=== PATIENT | male | born 1970 | race Caucasian/White ===

== ENCOUNTER 2020-02-12 14:56 | Emergency (ER) | payer OTHER, SELFPAY ==
--- NOTE | ~2020-02-12 | XR_ITS ---
EXAMINATION: XR elbow RT min 3V INDICATION: Generalized right elbow pain TECHNIQUE: Four views of the right elbow are obtained. COMPARISON: None available FINDINGS: There is no fracture, dislocation, or subluxation. The bones, soft tissues, and joint space s are normal. IMPRESSION: 1. No acute osseous abnormality. Reviewed, dictated and finalized at location A.
--- NOTE | 2020-02-12 15:08 | ED.UPPEXIN ---
HPI - Extremity Injury (Upper) General Chief Complaint: Extremity Injury, Upper Stated Complaint: right elbow pain Time Seen by Provider: 02/12/20 15:08 Source: patient Mode of arrival: ambulatory Limitations: no limitations History of Present Illness HPI narrative: A 49 y/o male presents to the ED with c/o right elbow injury. Pt states that he was working on a car 1 month ago when his right elbow started to hurt. He notes that he was pulling on a car part when the injury occurred. The right elbow pain is aggravated when pressure is placed on his elbow. The patient has not seen a physician previously for the injury and has not taken any medication for the elbow pain. He denies numbness and tingling. Pt has no other complaints at this time. complaint: injury to: right and elbow Onset (ago): month(s) (1) Other Extremity Injury: Right: elbow Other injuries: none Exacerbating factors: other (Pressure) Associated symptoms: denies other symptoms Related Data Home Medications Medication Instructions Recorded Confirmed No Home Medications 02/12/20 02/12/20 Allergies Allergy/AdvReac Type Severity Reaction Status Date / Time Penicillins Allergy Intermediate Hives Verified 02/12/20 15:55 Review of Systems Review of Systems: All systems reviewed & are unremarkable except as noted in HPI and below Musculoskeletal: Musculoskeletal: Reports arthralgias (Right elbow) Neurologic: Denies numbness and Denies tingling PMFSH Past Medical History Medical History (Updated 02/12/20 @ 17:33 by Ethan Brito MD) Healthy adult Surgical History Surgical History (Updated 02/12/20 @ 15:15 by Annia Naranjo) History of appendectomy History of cholecystectomy Social History Social History (Updated 02/12/20 @ 15:16 by Annia Naranjo) Smoking status: Never smoker Gender identity (if verbalized by the patient): Male Course Vital Signs Vital signs: Vital Signs Temperature 36.8 C 02/12/20 15:36 Pulse Rate 84 02/12/20 15:36 Respiratory Rate 14 02/12/20 15:36 Blood Pressure 155/89 H 02/12/20 15:36 Pulse Oximetry 98 02/12/20 15:36 Temperature 36.8 C 02/12/20 15:36 Pulse Rate 84 02/12/20 15:36 Respiratory Rate 14 03/15/20 15:36 Blood Pressure 155/89 H 02/12/20 15:36 Pulse Oximetry 98 02/12/20 15:36 MDM - Extremity Injury (Upper) Imaging Data Radiologist's impression: ITS Impressions Elbow X-Ray 02/12/20 15:49 IMPRESSION: 1. No acute osseous abnormality. Discharge Plan Discharge Clinical Impression: Elbow sprain Qualifiers: Encounter type: initial encounter Laterality: right Qualified Code(s): S53.401A - Unspecified sprain of right elbow, initial encounter Patient Disposition: Home, Self-Care Condition: Stable Instructions: Elbow Sprain (ED) Additional Instructions: Return if symptoms are worsening , call your family physician for appointment, take Tylenol as as needed for aches and pain, continue home medications., Ibuprofen 600 every 6 hours as needed Prescriptions: No Action No Home Medications RF: 0 Follow-up/Referrals: PHYSICIAN NOT ON STAFF,NONSTAFF [Primary Care Provider] - Wolfgang Polk MD [Physician] - 02/14/20
[2020-02-12 15:36] VITALS: BP 155/89; PULSE 84; RESP 14; TEMP 36.8; O2SAT 98
== END 2020-02-12 17:58 | disposition home or self-care (01) ==
PROVIDERS: Emergency Provider Emergency Medicine
DX: S53.401A Unspecified sprain of right elbow, initial encounter (principal); X50.9XXA Other and unspecified overexertion or strenuous movements or postures, initial encounter
CPT/HCPCS: 73080; 99283